=== PATIENT | male | born 1985 | race Caucasian/White ===

== ENCOUNTER 2024-12-26 22:56 | Emergency (ER) | payer MEDICAID, SELFPAY ==
[2024-12-26 22:57] VITALS: BMI 23.7
--- NOTE | 2024-12-27 01:10 | PC.NURSE ---
STAFF CALLED PATIENT IN THE LOBBY AND OUTSIDE, NO ANSWER RECEIVED.
--- NOTE | 2024-12-27 01:47 | PC.NURSE ---
CALLED PATIENT IN LOBBY AND OUTSIDE, NO ANSWER RECIEVED.
--- NOTE | 2024-12-27 01:48 | PC.LAC ---
CALLED PATIENT IN THE LOBBY AND OUTSIDE, NO ANSWER RECIEVED.
--- NOTE | 2024-12-27 02:04 | PD.EDADDENDU ---
Emergency Room Addendum Addendum Narrative: When I looked for the patient to start my evaluation, I was told the patient eloped. Hans Scott MD
--- NOTE | 2024-12-27 02:35 | PC.NURSE ---
CALLED PATIENT IN THE LOBBY AND OUTSIDE, NO ANSWER RECEIVED.
== END 2024-12-27 02:57 | disposition left against medical advice (07) ==
LOC: SERX 12-27 02:15
PROVIDERS: Emergency Provider Emergency Medicine
DX: Z53.21 Procedure and treatment not carried out due to patient leaving prior to being seen by health care provider (principal)